=== PATIENT | male | born 1990 ===

== ENCOUNTER 2018-12-21 10:48 | Emergency (ER) | payer OTHER ==
[~2018-12-21] VITALS: Ht 162.6 cm; Wt 52.6 kg
[2018-12-21] MEDS ORDERED: LEVSIN/SL0.125 MG PO (19:53)
[2018-12-21] MEDS ORDERED: PEPCID AC20 MG PO (19:53)
[2018-12-21] MEDS ORDERED: INTESTINEX680 M1 PO (19:53)
[2018-12-21] MEDS ORDERED: ULTRACET PO (19:53)
== END 2018-12-21 20:32 | disposition home or self-care (01) ==
LOC: ER 10:48
DX: R10.32 Left lower quadrant pain (principal); R19.7 Diarrhea, unspecified

== ENCOUNTER 2019-02-18 17:40 | Emergency (ER) | payer OTHER ==
[~2019-02-18] VITALS: Ht 162.6 cm; Wt 73.5 kg
[~2019-02-18 17:40] MED LIST: INTESTINEX680 M1 PO; LEVSIN/SL0.125 MG PO; PEPCID AC20 MG PO; ULTRACET PO
== END 2019-02-18 22:10 | disposition home or self-care (01) ==
LOC: ER 17:40
DX: K29.70 Gastritis, unspecified, without bleeding (principal); K29.80 Duodenitis without bleeding